=== PATIENT | female | born 1950 | race Caucasian/White ===

== ENCOUNTER → 2017-06-24 | Outpatient (CLI) | payer OTHER ==
[~2017-06-24] MED LIST: CLTP PO; MULT-506 PO; OMEG10007 PO; VITA400C15 PO
--- NOTE | 2017-06-24 14:16 | MAMMOGRAPHY REPORT ---
BILATERAL DIGITAL SCREENING MAMMOGRAM WITH CAD: 06/24/2017 CLINICAL HISTORY: Routine screening examination. TECHNIQUE: Bilateral CC and MLO views were obtained. Current study was also evaluated with a Compute r Aided Detection (CAD) system. COMPARISON: Comparison is made to exams dated: 06/21/2016 mammogram, 06/16/2015 mammogram, 06/10/2014 m ammogram, 06/04/2013 mammogram, 05/31/2011 mammogram - [facility], and 04/22/2009. BREAST COMPOSITION: The tissue of both breasts is almost entirely fatty. FINDINGS: There is stable focal asymmetry in the left upper outer quadrant, which appears similar on all available prior mammograms dating back to at least 2007, therefore likely benign. There are corey ign rodlike and coarse calcifications scattered bilaterally. No suspicious mass, architectural distor tion or cluster of microcalcifications is seen. IMPRESSION: ACR BI-RADS CATEGORY 2: BENIGN There is no mammographic evidence of malignancy. A 1 year screening mammogram is recommended. The pa tient will receive written notification of the results. Approximately 10% of breast cancers are not detected with mammography. A negative mammographic report should not delay biopsy if a clinically suggestive mass is present. Hamida Yanez M.D. ay/:06/24/2017 13:42:57 Card Scraper: Kathy MORGAN)(M), [facility] letter sent: Normal 1/2 BI-RADS Code: ACR BI-RADS Category 2: Benign
== END | disposition home or self-care (01) ==
LOC: C.MAMM 10:35
PROVIDERS: ATTEND Internal Medicine
DX: Z12.31 Encounter for screening mammogram for malignant neoplasm of breast (principal)